=== PATIENT | female | born 1940 | race African-American/Black ===

== ENCOUNTER 2023-11-12 18:47 | Inpatient (IN) | payer BC, MEDICARE ==
[~2023-11-12] VITALS: Ht 157.5 cm; Wt 65.8 kg
[2023-11-12] MEDS ORDERED: URECHOLINE (19:11)
[2023-11-12] MEDS ORDERED: JANUVIA (19:11)
[2023-11-12] MEDS ORDERED: FLOMAX (19:11)
[2023-11-12] MEDS ORDERED: HYDROMORPHONE 1 MG/1 ML DISP.SYRIN IV ONE ×2 (19:30→23:45)
[2023-11-12] MEDS ORDERED: ONDANSETRON 4 MG/2 ML VIAL IV ONE (19:30)
[2023-11-12] MEDS ORDERED: ASPIRIN 81 MG TAB.CHEW PO ONE (19:30)
[2023-11-12] MEDS ORDERED: IV NORMAL SALINE 1000 ML BAG IV ONE (19:30)
[2023-11-12] MEDS ORDERED: ASPIRIN 81 MG TAB.CHEW ONE (19:39)
[2023-11-12] MEDS ORDERED: HYDROMORPHONE 1 MG/1 ML DISP.SYRIN ONE ×2 (19:39→23:41)
[2023-11-12] MEDS ORDERED: ONDANSETRON 4 MG/2 ML VIAL ONE (19:39)
[2023-11-12 19:53] LABS: BASOPHILS # (AUTO) 0.3 K/UL (0.0-0.2); BASOPHILS % (AUTO) 2.6 % (0.0-2.0); EOSINOPHILS # (AUTO) 0.4 K/uL (0.0-0.7); EOSINOPHILS % (AUTO) 4.1 % (0.0-7.0); HEMOGLOBIN 12.1 g/dL (10.9-14.3); LYMPHOCYTES # (AUTO) 2.9 K/uL (0.8-4.8); LYMPHOCYTES % (AUTO) 26.4 % (20.5-51.5); MEAN CORPUSCULAR HEMOGLOBIN 26.9 uug (24.7-32.8); MEAN CORPUSCULAR HGB CONC 33 g/dL (32.3-35.6); MEAN CORPUSCULAR VOLUME 82.4 fL (75.5-95.3); MONOCYTES # (AUTO) 0.8 K/uL (0.1-1.30); MONOCYTES % (AUTO) 7.3 % (0.0-11.0); NEUTROPHILS # (AUTO) 6.5 K/uL (1.8-8.9); NEUTROPHILS % (AUTO) 59.6 % (38.5-71.5); PLATELET COUNT (AUTO) 288 K/uL (179-408); RED BLOOD CELL COUNT(AUTO) 4.49 MIL/uL (3.63-4.92); WHITE BLOOD COUNT (AUTO) 10.8 K/uL (3.8-11.8)
[2023-11-12 20:07] LABS: CALCIUM 9.2 mg/dL (8.5-10.1); CARBON DIOXIDE 28 mmol/L (21-32); CHLORIDE 104 mmol/L (98-107); CREATININE 0.8 mg/dL (0.6-1.3); DIFFERENTIAL COMMENT 1; GLUCOSE 157 mg/dL (74-106); POTASSIUM 4.3 mmol/L (3.5-5.1); SODIUM SERUM 140 mmol/L (136-145); UREA NITROGEN, BLOOD 10 mg/dL (7-18)
[2023-11-12 20:13] LABS: *BILIRUBIN,URIN NEGATIVE (NEGATIVE); *BLOOD, URINE 3+ (NEGATIVE); *CLARITY,URINE CLEAR (CLEAR); *COLOR,URINE YELLOW (YELLOW); *KETONES,URINE NEGATIVE (NEGATIVE); *PROTEIN,URINE TRACE (NEGATIVE); *UROBILINOGEN,URINE 0.2 E.U./dl (NORMAL); LEUKOCYTE ESTERASE ,URINE TRACE (NEGATIVE); NITRITE, URINE NEGATIVE (NEGATIVE); UGLUCOSE NEGATIVE (NEGATIVE)
[2023-11-12 20:20] LABS: ALANINE AMINOTRANSFERASE 19 U/L (14-59); ALBUMIN 2.7 g/dL (3.4-5.0); ALKALINE PHOSPHATASE 88 U/L (50-136); ASPARTATE AMINOTRANSFERASE 8 U/L (15-37); BILIRUBIN,DIRECT 0.1 mg/dL (0.0-0.2); BILIRUBIN,TOTAL 0.4 mg/dL (0.2-1.0); NT-PRO BNP 42 pg/mL (0-125); TOTAL PROTEIN, SERUM 6.9 g/dL (6.4-8.2)
[2023-11-12 21:04] LABS: BACTERIA,URINE FEW /HPF (NONE SEEN); RBC,URINE 80-100 /HPF (0-3)
[2023-11-13] MEDS ORDERED: SWABABLE VALVE TRANSFER SET EA MC ONE (00:29)
[2023-11-13] MEDS ORDERED: IOHEXOL 350 100 ML INFUS..BTL ONE (00:29)
[2023-11-13] MEDS ORDERED: IV NORMAL SALINE 250 ML IV ONE (00:29)
[2023-11-13] MEDS ORDERED: MAGNESIUM CITRATE 296 ML BOTTLE PO ONE (04:30)
[2023-11-13] MEDS ORDERED: MAGNESIUM HYDROXIDE 30 ML LIQUID UDC ONE (04:46)
[2023-11-13] MEDS ORDERED: ACETAMINOPHEN 325 MG TABLET PO PRN (05:15)
[2023-11-13] MEDS ORDERED: MAGNESIUM HYDROXIDE 30 ML LIQUID UDC PO PRN (05:15)
[2023-11-13] MEDS ORDERED: REMEDY ESSENTIAL ZINC PASTE 113 GM TP PRN (05:15)
[2023-11-13] MEDS ORDERED: ONDANSETRON 4 MG/2 ML VIAL IV PRN (05:15)
[2023-11-13] MEDS ORDERED: ENOXAPARIN SODIUM 60 MG/0.6 ML DISP.SYRIN SQ ONE ×2 (05:18→05:30)
[2023-11-13] MEDS ORDERED: MAGNESIUM HYDROXIDE 30 ML LIQUID UDC PO ONE (05:30)
[2023-11-13 07:04] VITALS: BP 125/73; TEMP 98.4; O2SAT 95
[2023-11-13] MEDS: PANTOPRAZOLE SODIUM 40 MG TABLET.DR PO SCH (07:10)
[2023-11-13] MEDS ORDERED: CEFTRIAXONE 1 G in IV DEXTROSE 5% 50 ML IV SCH (09:00)
[2023-11-13] MEDS ORDERED: DEXTROSE 50% 50 ML DISP.SYRIN IV PRN (09:00)
[2023-11-13] MEDS: DOCUSATE SODIUM 250 MG CAPSULE PO SCH ×3 (09:22→17:02)
[2023-11-13] MEDS: BLOOD SUGAR DIAGNOSTIC 1 EACH STRIP VI SCH ×3 (11:22→21:00)
[2023-11-13 11:30] VITALS: BP 136/47; TEMP 97.8; O2SAT 93
[2023-11-13] MEDS: INSULIN REGULAR, HUMAN 300 UNIT/3 ML VIAL SQ PRN ×2 (11:58→21:01)
[2023-11-13] MEDS: LIDOCAINE 5% PATCH TD SCH (12:20)
[2023-11-13] MEDS ORDERED: POLY17PO4 PO (12:51)
[2023-11-13] MEDS ORDERED: BETH10TA2 PO (12:51)
[2023-11-13] MEDS ORDERED: TAMS-3 PO (12:51)
[2023-11-13] MEDS ORDERED: GABA300C PO (12:51)
[2023-11-13] MEDS ORDERED: LINA5TAB PO (12:51)
[2023-11-13] MEDS: HYDROCODONE/APAP 5-325MG TABLET PO PRN ×2 (14:08→14:14)
[2023-11-13 15:31] VITALS: BP 99/70; TEMP 98; O2SAT 95
[2023-11-13] MEDS: ENOXAPARIN SODIUM 80 MG/0.8 ML DISP.SYRIN SQ SCH (17:08)
[2023-11-13] MEDS: MIRALAX 17 GM POWD.PACK PO SCH ×3 (18:49→19:05)
[2023-11-13 20:00] VITALS: BP 141/75; TEMP 98.5; O2SAT 93
[2023-11-13] MEDS: CEphaleXIN 500 MG CAPSULE PO SCH (21:45)
[2023-11-13] MEDS ORDERED: CEphaleXIN 500 MG CAPSULE PO SCH (22:00)
[2023-11-14] VITALS: BP 124/63; TEMP 98.3; O2SAT 96
[2023-11-14 04:00] VITALS: BP 110/57; TEMP 98.6; O2SAT 93
[2023-11-14] MEDS: ENOXAPARIN SODIUM 80 MG/0.8 ML DISP.SYRIN SQ SCH ×2 (05:58→17:40)
[2023-11-14] MEDS: PANTOPRAZOLE SODIUM 40 MG TABLET.DR PO SCH (05:58)
[2023-11-14] MEDS: BLOOD SUGAR DIAGNOSTIC 1 EACH STRIP VI SCH ×4 (06:44→20:31)
[2023-11-14] MEDS: CEphaleXIN 500 MG CAPSULE PO SCH ×2 (08:30→20:43)
[2023-11-14] MEDS: LIDOCAINE 5% PATCH TD SCH (08:32)
[2023-11-14] MEDS: DOCUSATE SODIUM 250 MG CAPSULE PO SCH ×2 (08:34→16:30)
[2023-11-14] MEDS: MIRALAX 17 GM POWD.PACK PO SCH (08:34)
[2023-11-14 08:37] LABS: BASOPHILS % (AUTO) 0.6 % (0.0-2.0); EOSINOPHILS # (AUTO) 0.4 K/uL (0.0-0.7); EOSINOPHILS % (AUTO) 6.1 % (0.0-7.0); HEMATOCRIT 33.5 % (31.2-41.9); HEMOGLOBIN 11.1 g/dL (10.9-14.3); LYMPHOCYTES # (AUTO) 1.8 K/uL (0.8-4.8); LYMPHOCYTES % (AUTO) 24.9 % (20.5-51.5); MEAN CORPUSCULAR HEMOGLOBIN 27.5 uug (24.7-32.8); MEAN CORPUSCULAR HGB CONC 33 g/dL (32.3-35.6); MEAN CORPUSCULAR VOLUME 82.9 fL (75.5-95.3); MONOCYTES # (AUTO) 0.7 K/uL (0.1-1.30); MONOCYTES % (AUTO) 9.6 % (0.0-11.0); NEUTROPHILS # (AUTO) 4.3 K/uL (1.8-8.9); NEUTROPHILS % (AUTO) 58.8 % (38.5-71.5); PLATELET COUNT (AUTO) 305 K/uL (179-408); RED BLOOD CELL COUNT(AUTO) 4.04 MIL/uL (3.63-4.92); RED CELL DISTRIBUTION WIDTH 14.9 % (12.3-17.7); WHITE BLOOD COUNT (AUTO) 7.3 K/uL (3.8-11.8)
[2023-11-14 08:51] LABS: CALCIUM 8.7 mg/dL (8.5-10.1); CARBON DIOXIDE 27 mmol/L (21-32); CHLORIDE 106 mmol/L (98-107); CREATININE 0.7 mg/dL (0.6-1.3); GLUCOSE 99 mg/dL (74-106); MAGNESIUM 2.2 mg/dL (1.8-2.4); PHOSPHOROUS 3.1 mg/dL (2.5-4.9); POTASSIUM 4.2 mmol/L (3.5-5.1); SODIUM SERUM 140 mmol/L (136-145); UREA NITROGEN, BLOOD 5 mg/dL (7-18)
[2023-11-14 09:14] LABS: DIFFERENTIAL COMMENT 1
[2023-11-14 09:59] LABS: THYROID STIMULATING HORMONE 2.189 mIU/mL (0.358-3.740)
[2023-11-14 11:30] VITALS: BP 108/62; TEMP 98; O2SAT 98
[2023-11-14 15:36] VITALS: BP 112/64; TEMP 98.5; O2SAT 94
[2023-11-14 20:00] VITALS: BP 118/71; TEMP 98.4; O2SAT 97
[2023-11-14] MEDS: INSULIN REGULAR, HUMAN 300 UNIT/3 ML VIAL SQ PRN (20:32)
[2023-11-14 22:01] VITALS: O2SAT 97
[2023-11-15] VITALS: BP 109/67; TEMP 98; O2SAT 96
[2023-11-15 04:00] VITALS: BP 109/70; TEMP 98.2; O2SAT 98
[2023-11-15] MEDS: ENOXAPARIN SODIUM 80 MG/0.8 ML DISP.SYRIN SQ SCH ×2 (05:34→17:17)
[2023-11-15] MEDS: PANTOPRAZOLE SODIUM 40 MG TABLET.DR PO SCH (05:35)
[2023-11-15 06:42] LABS: BASOPHILS # (AUTO) 0.1 K/UL (0.0-0.2); EOSINOPHILS # (AUTO) 0.4 K/uL (0.0-0.7); EOSINOPHILS % (AUTO) 6.8 % (0.0-7.0); HEMATOCRIT 36.5 % (31.2-41.9); HEMOGLOBIN 11.8 g/dL (10.9-14.3); LYMPHOCYTES # (AUTO) 1.7 K/uL (0.8-4.8); LYMPHOCYTES % (AUTO) 28.2 % (20.5-51.5); MEAN CORPUSCULAR HEMOGLOBIN 26.9 uug (24.7-32.8); MEAN CORPUSCULAR HGB CONC 32 g/dL (32.3-35.6); MONOCYTES # (AUTO) 0.6 K/uL (0.1-1.30); MONOCYTES % (AUTO) 10.2 % (0.0-11.0); NEUTROPHILS # (AUTO) 3.3 K/uL (1.8-8.9); NEUTROPHILS % (AUTO) 53.8 % (38.5-71.5); PLATELET COUNT (AUTO) 361 K/uL (179-408); RED CELL DISTRIBUTION WIDTH 14.7 % (12.3-17.7); WHITE BLOOD COUNT (AUTO) 6.1 K/uL (3.8-11.8)
[2023-11-15 06:53] LABS: DIFFERENTIAL COMMENT 1
[2023-11-15] MEDS: BLOOD SUGAR DIAGNOSTIC 1 EACH STRIP VI SCH ×4 (07:14→20:57)
[2023-11-15 07:33] LABS: CALCIUM 9.2 mg/dL (8.5-10.1); CREATININE 0.7 mg/dL (0.6-1.3); MAGNESIUM 2.2 mg/dL (1.8-2.4); PHOSPHOROUS 3.5 mg/dL (2.5-4.9); POTASSIUM 4.1 mmol/L (3.5-5.1)
[2023-11-15] MEDS: DOCUSATE SODIUM 250 MG CAPSULE PO SCH ×2 (08:18→16:34)
[2023-11-15] MEDS: MIRALAX 17 GM POWD.PACK PO SCH (08:18)
[2023-11-15] MEDS: CEphaleXIN 500 MG CAPSULE PO SCH ×2 (08:18→20:57)
[2023-11-15] MEDS: LIDOCAINE 5% PATCH TD SCH (08:18)
[2023-11-15 11:30] VITALS: BP 119/75; TEMP 98.2; O2SAT 93
[2023-11-15 12:00] VITALS: O2SAT 98
[2023-11-15] MEDS: INSULIN REGULAR, HUMAN 300 UNIT/3 ML VIAL SQ PRN (12:11)
[2023-11-15 16:04] VITALS: BP 128/69; TEMP 98.2; O2SAT 97
[2023-11-15 20:00] VITALS: BP 112/64; TEMP 97.9; O2SAT 99
[2023-11-16 02:06] VITALS: O2SAT 98
[2023-11-16 04:00] VITALS: BP 124/66; TEMP 98.2; O2SAT 98
[2023-11-16] MEDS: ENOXAPARIN SODIUM 80 MG/0.8 ML DISP.SYRIN SQ SCH (05:50)
[2023-11-16] MEDS: PANTOPRAZOLE SODIUM 40 MG TABLET.DR PO SCH (06:18)
[2023-11-16 06:30] LABS: BASOPHILS % (AUTO) 0.7 % (0.0-2.0); EOSINOPHILS # (AUTO) 0.5 K/uL (0.0-0.7); EOSINOPHILS % (AUTO) 8.2 % (0.0-7.0); HEMOGLOBIN 11.6 g/dL (10.9-14.3); LYMPHOCYTES # (AUTO) 1.9 K/uL (0.8-4.8); LYMPHOCYTES % (AUTO) 33.1 % (20.5-51.5); MEAN CORPUSCULAR HEMOGLOBIN 27.3 uug (24.7-32.8); MEAN CORPUSCULAR HGB CONC 33 g/dL (32.3-35.6); MEAN CORPUSCULAR VOLUME 82.6 fL (75.5-95.3); MONOCYTES # (AUTO) 0.6 K/uL (0.1-1.30); MONOCYTES % (AUTO) 10.2 % (0.0-11.0); NEUTROPHILS # (AUTO) 2.8 K/uL (1.8-8.9); NEUTROPHILS % (AUTO) 47.8 % (38.5-71.5); PLATELET COUNT (AUTO) 367 K/uL (179-408); RED BLOOD CELL COUNT(AUTO) 4.24 MIL/uL (3.63-4.92); RED CELL DISTRIBUTION WIDTH 14.6 % (12.3-17.7); WHITE BLOOD COUNT (AUTO) 5.8 K/uL (3.8-11.8)
[2023-11-16] MEDS: BLOOD SUGAR DIAGNOSTIC 1 EACH STRIP VI SCH ×4 (06:36→20:40)
[2023-11-16 06:42] LABS: CALCIUM 9.1 mg/dL (8.5-10.1); CARBON DIOXIDE 28 mmol/L (21-32); CHLORIDE 103 mmol/L (98-107); CREATININE 0.8 mg/dL (0.6-1.3); GLUCOSE 120 mg/dL (74-106); MAGNESIUM 2.1 mg/dL (1.8-2.4); PHOSPHOROUS 3.5 mg/dL (2.5-4.9); POTASSIUM 3.8 mmol/L (3.5-5.1); SODIUM SERUM 138 mmol/L (136-145); UREA NITROGEN, BLOOD 8 mg/dL (7-18)
[2023-11-16 07:32] LABS: DIFFERENTIAL COMMENT 1
[2023-11-16 08:30] VITALS: BP 114/60; TEMP 97.8; O2SAT 95
[2023-11-16] MEDS: CEphaleXIN 500 MG CAPSULE PO SCH ×2 (09:17→20:38)
[2023-11-16] MEDS: MIRALAX 17 GM POWD.PACK PO SCH (09:17)
[2023-11-16] MEDS: DOCUSATE SODIUM 250 MG CAPSULE PO SCH ×2 (09:17→16:27)
[2023-11-16] MEDS: LIDOCAINE 5% PATCH TD SCH (09:18)
[2023-11-16 11:00] VITALS: BP 112/67; TEMP 98.3; O2SAT 95
[2023-11-16] MEDS ORDERED: CEPH500T PO (12:46)
[2023-11-16] MEDS ORDERED: APIX5TAB PO (12:46)
[2023-11-16 16:22] VITALS: BP 125/66; TEMP 98.2; O2SAT 95
[2023-11-16 20:00] VITALS: BP 117/69; TEMP 98.1; O2SAT 92
[2023-11-16] MEDS: APIXABAN 5 MG TABLET PO SCH (20:39)
[2023-11-17 04:00] VITALS: BP 132/82; TEMP 98.4; O2SAT 99
[2023-11-17] MEDS: PANTOPRAZOLE SODIUM 40 MG TABLET.DR PO SCH (06:03)
[2023-11-17] MEDS: BLOOD SUGAR DIAGNOSTIC 1 EACH STRIP VI SCH ×2 (06:30→11:18)
[2023-11-17 08:00] VITALS: BP_SYST 108; BP_SYST 125; BP_DIAS 69; BP_DIAS 70; TEMP 100.1; TEMP 98.1; O2SAT 92; O2SAT 97
[2023-11-17] MEDS: CEphaleXIN 500 MG CAPSULE PO SCH (09:08)
[2023-11-17] MEDS: DOCUSATE SODIUM 250 MG CAPSULE PO SCH (09:08)
[2023-11-17] MEDS: APIXABAN 5 MG TABLET PO SCH (09:09)
[2023-11-17] MEDS: LIDOCAINE 5% PATCH TD SCH (09:11)
[2023-11-17] MEDS: MIRALAX 17 GM POWD.PACK PO SCH (09:12)
[2023-11-17 12:02] VITALS: BP 134/56; TEMP 98.3; O2SAT 92
[2023-11-17] MEDS ORDERED: SIMETHICONE 80 MG TAB.CHEW PO PRN (13:15)
== END 2023-11-17 15:45 | disposition home health service (06) | DRG 314 ==
LOC: ER 18:49 → TELE3 11-13 05:00 → MEDSURG3 11-15 10:15
PROVIDERS: ADMIT Nurse Practitioner Family; ATTEND Nurse Practitioner Acute Care
DX: I97.89 Other postprocedural complications and disorders of the circulatory system, not elsewhere classified (principal); I26.99 Other pulmonary embolism without acute cor pulmonale; I82.411 Acute embolism and thrombosis of right femoral vein; N39.0 Urinary tract infection, site not specified; J98.11 Atelectasis; Z98.890 Other specified postprocedural states; Y83.4 Other reconstructive surgery as the cause of abnormal reaction of the patient, or of later complication, without mention of misadventure at the time of the procedure; Y92.89 Other specified places as the place of occurrence of the external cause; B96.89 Other specified bacterial agents as the cause of diseases classified elsewhere; R73.03 Prediabetes; Z79.84 Long term (current) use of oral hypoglycemic drugs; Z90.710 Acquired absence of both cervix and uterus; K59.00 Constipation, unspecified
CPT/HCPCS: 36415; 71045; 71275; 83735; 84100; 84443; 84484; 85025; 93005; 93307; G0378; J0696; J1170; J1650; J1815; J2405; J7040; Q9967

== ENCOUNTER 2024-06-30 10:34 | Emergency (ER) | payer MEDICARE, OTHER ==
[~2024-06-30] VITALS: Ht 154.9 cm; Wt 65.8 kg
[~2024-06-30 10:34] MED LIST: APIX5TAB PO; BETH10TA2 PO; CEPH500T PO; GABA300C PO; LINA5TAB PO; POLY17PO4 PO; TAMS-3 PO
[2024-06-30] MEDS: IV NORMAL SALINE 500 ML BAG IV ONE (11:30)
[2024-06-30 11:42] LABS: BASOPHILS # (AUTO) 0.1 K/UL (0.0-0.2); BASOPHILS % (AUTO) 1.3 % (0.0-2.0); EOSINOPHILS # (AUTO) 0.4 K/uL (0.0-0.7); EOSINOPHILS % (AUTO) 5.5 % (0.0-7.0); HEMATOCRIT 42.5 % (31.2-41.9); HEMOGLOBIN 13.6 g/dL (10.9-14.3); LYMPHOCYTES # (AUTO) 3.1 K/uL (0.8-4.8); LYMPHOCYTES % (AUTO) 38.8 % (20.5-51.5); MEAN CORPUSCULAR HEMOGLOBIN 26.5 uug (24.7-32.8); MEAN CORPUSCULAR HGB CONC 32 g/dL (32.3-35.6); MEAN CORPUSCULAR VOLUME 82.8 fL (75.5-95.3); MONOCYTES # (AUTO) 0.5 K/uL (0.1-1.30); MONOCYTES % (AUTO) 6.6 % (0.0-11.0); NEUTROPHILS # (AUTO) 3.8 K/uL (1.8-8.9); NEUTROPHILS % (AUTO) 47.8 % (38.5-71.5); PLATELET COUNT (AUTO) 231 K/uL (179-408); RED BLOOD CELL COUNT(AUTO) 5.13 MIL/uL (3.63-4.92); RED CELL DISTRIBUTION WIDTH 15.7 % (12.3-17.7)
[2024-06-30 11:44] LABS: DIFFERENTIAL COMMENT 1
[2024-06-30 11:50] LABS: CALCIUM 9.2 mg/dL (8.5-10.1); CARBON DIOXIDE 26 mmol/L (21-32); CHLORIDE 107 mmol/L (98-107); GLUCOSE 149 mg/dL (74-106); POTASSIUM 4.6 mmol/L (3.5-5.1); SODIUM SERUM 141 mmol/L (136-145); UREA NITROGEN, BLOOD 16 mg/dL (7-18)
[2024-06-30 11:56] LABS: ALANINE AMINOTRANSFERASE 17 U/L (14-59); ALBUMIN 3.7 g/dL (3.4-5.0); ALKALINE PHOSPHATASE 103 U/L (50-136); ASPARTATE AMINOTRANSFERASE 10 U/L (15-37); BILIRUBIN,DIRECT 0.1 mg/dL (0.0-0.2); BILIRUBIN,TOTAL 0.5 mg/dL (0.2-1.0); LIPASE 38 U/L (16-77); TOTAL PROTEIN, SERUM 7.8 g/dL (6.4-8.2)
[2024-06-30 13:05] VITALS: BP 132/61; O2SAT 96
== END 2024-06-30 13:05 | disposition home or self-care (01) ==
LOC: ER 10:34
DX: Z13.89 Encounter for screening for other disorder (principal); Z86.711 Personal history of pulmonary embolism; Z79.899 Other long term (current) drug therapy
CPT/HCPCS: 36415; 83690; 85025; A4606; A4663; J7040

== ENCOUNTER 2025-10-26 17:30 | Emergency (ER) | payer OTHER ==
[~2025-10-26] VITALS: Ht 154.9 cm; Wt 79.4 kg
[~2025-10-26 17:30] MED LIST changes: -BETH10TA2 PO; +BETH10TA3 PO; -TAMS-3 PO; +TAMS0.4C PO
[2025-10-26 18:05] LABS: PLATELET COUNT (AUTO) 243 K/uL (179-408); RED BLOOD CELL COUNT(AUTO) 5.02 MIL/uL (3.63-4.92); RED CELL DISTRIBUTION WIDTH 15.6 % (12.3-17.7); WHITE BLOOD COUNT (AUTO) 8.7 K/uL (3.8-11.8)
[2025-10-26] MEDS ORDERED: ONDANSETRON 4 MG/2 ML VIAL ONE (18:18)
[2025-10-26] MEDS ORDERED: MORPHINE SULFATE 4 MG/1 ML DISP.SYRIN ONE ×2 (18:19→20:58)
[2025-10-26] MEDS ORDERED: MAG HYDROX/AL HYDROX/SIMETH 30 ML LIQUID UDC ONE (18:19)
[2025-10-26 18:22] LABS: CREATININE 0.8 mg/dL (0.6-1.3); SODIUM SERUM 140 mmol/L (136-145); UREA NITROGEN, BLOOD 13 mg/dL (7-18)
[2025-10-26 18:27] LABS: ASPARTATE AMINOTRANSFERASE 16 U/L (15-37); TOTAL PROTEIN, SERUM 7.2 g/dL (6.4-8.2)
[2025-10-26] MEDS: ONDANSETRON 4 MG/2 ML VIAL IV ONE (18:31)
[2025-10-26] MEDS: MAG HYDROX/AL HYDROX/SIMETH 30 ML LIQUID UDC PO ONE (18:31)
[2025-10-26] MEDS ORDERED: ASPIRIN 325 MG TABLET ONE (18:31)
[2025-10-26] MEDS: MORPHINE SULFATE 2 MG/1 ML DISP.SYRIN IV ONE (18:31)
[2025-10-26] MEDS: ASPIRIN EC 325 MG TABLET.DR PO ONE (18:34)
[2025-10-26] MEDS ORDERED: IOHEXOL 300MG/ML 100 ML INFUS..BTL ONE (18:59)
[2025-10-26] MEDS ORDERED: IV NORMAL SALINE 250 ML IV ONE (19:00)
[2025-10-26] MEDS ORDERED: SWABABLE VALVE TRANSFER SET EA MC ONE (19:00)
[2025-10-26 19:04] LABS: *BILIRUBIN,URIN NEGATIVE (NEGATIVE); *BLOOD, URINE NEGATIVE (NEGATIVE); *CLARITY,URINE CLEAR (CLEAR); *COLOR,URINE YELLOW (YELLOW); *KETONES,URINE NEGATIVE (NEGATIVE); *PROTEIN,URINE NEGATIVE (NEGATIVE); *UROBILINOGEN,URINE 0.2 E.U./dl (NORMAL); LEUKOCYTE ESTERASE ,URINE TRACE (NEGATIVE); NITRITE, URINE NEGATIVE (NEGATIVE); UGLUCOSE NEGATIVE (NEGATIVE)
[2025-10-26 19:11] LABS: SQUAMOUS EPITHELIAL CELL,UR FEW /HPF (NONE SEEN)
[2025-10-26] MEDS ORDERED: IOHEXOL 350 100 ML INFUS..BTL ONE (20:15)
[2025-10-26] MEDS ORDERED: MORPHINE SULFATE 2 MG/1 ML DISP.SYRIN ONE (20:58)
[2025-10-26] MEDS: MORPHINE SULFATE 4 MG/1 ML DISP.SYRIN IV ONE (21:02)
[2025-10-27] MEDS ORDERED: GUAIFENESIN SUGAR FREE 100 MG/5 ML UDC ONE (00:51)
[2025-10-27] MEDS: GUAIFENESIN SUGAR FREE 100 MG/5 ML UDC PO ONE (00:54)
[2025-10-27] MEDS ORDERED: METOCLOPRAMIDE HCL 10 MG/2 ML VIAL ONE (02:50)
[2025-10-27] MEDS ORDERED: diphenhydrAMINE 50 MG/1 ML VIAL ONE (02:50)
[2025-10-27] MEDS: diphenhydrAMINE 50 MG/1 ML VIAL IV ONE (03:07)
[2025-10-27] MEDS: METOCLOPRAMIDE HCL 10 MG/2 ML VIAL IV ONE (03:07)
[2025-10-27 03:30] VITALS: BP 139/77; O2SAT 95
[2025-10-27] MEDS ORDERED: MORPHINE SULFATE 4 MG/1 ML DISP.SYRIN ONE (04:04)
[2025-10-27] MEDS: MORPHINE SULFATE 4 MG/1 ML DISP.SYRIN IV ONE (04:06)
== END 2025-10-27 04:17 | disposition short-term general hospital (02) ==
LOC: ER 17:30
DX: R07.89 Other chest pain (principal); B34.9 Viral infection, unspecified; E11.9 Type 2 diabetes mellitus without complications; I11.9 Hypertensive heart disease without heart failure; J40 Bronchitis, not specified as acute or chronic; K21.9 Gastro-esophageal reflux disease without esophagitis; K29.70 Gastritis, unspecified, without bleeding; K44.9 Diaphragmatic hernia without obstruction or gangrene; K57.30 Diverticulosis of large intestine without perforation or abscess without bleeding; K85.90 Acute pancreatitis without necrosis or infection, unspecified; M19.90 Unspecified osteoarthritis, unspecified site; Z79.01 Long term (current) use of anticoagulants; Z79.84 Long term (current) use of oral hypoglycemic drugs; R06.02 Shortness of breath
CPT/HCPCS: 99285; 71275; 96374; 71045; 96375 ×2; 80076; 80048; 81001; 83880; 83690; 85025; 84484 ×2; 36415; 74150; 74177; 93005; 96376 ×2; 82962; J2405; Q9967 ×2; J2270 ×4; J1200; J2765; A4606; A4663